=== PATIENT | female | born 1950 ===

== ENCOUNTER 2023-11-14 17:05 | Emergency (ER) | payer MEDICARE, OTHER ==
[2023-11-14] MEDS ORDERED: Sodium Chloride 0.9% 10 ML Syringe FLUSH PRN (17:23)
[2023-11-14 17:38] LABS: BASOPHILS ABSOLUTE AUTO 0.03 K/uL (0.00-0.20); BASOPHILS PERCENT AUTO 0.4 % (0.0-2.0); EOSINOPHILS ABSOLUTE AUTO 0.12 K/uL (0.00-0.50); EOSINOPHILS PERCENT AUTO 1.6 % (0.0-5.0); HEMATOCRIT 33.3 % (34.0-46.0); HEMOGLOBIN 10.8 g/dL (11.7-15.5); LYMPHOCYTES ABSOLUTE AUTO 1.82 K/uL (0.50-3.50); LYMPHOCYTES PERCENT AUTO 23.7 % (10.0-50.0); MEAN CORPUSCULAR HEMOGLOBIN 31.1 pg (28.2-33.3); MEAN CORPUSCULAR HGB CONC 32.4 g/dL (31.7-36.0); MONOCYTES ABSOLUTE AUTO 0.77 K/uL (0.00-1.00); NEUTROPHILS ABSOLUTE AUTO 4.94 K/uL (1.40-7.00); NEUTROPHILS PERCENT AUTO 64.3 % (45.0-80.0); PLATELET COUNT,PLT 300 K/uL (150-350); RED BLOOD CELL COUNT 3.47 M/uL (3.77-5.09); RED CELL DISTRIBUTION WIDTH 13.2 % (11.2-14.1); WHITE BLOOD CELL COUNT,WBC 7.7 K/uL (4.0-10.2)
[2023-11-14] MEDS ORDERED: Prochlorperazine 5 MG in Sodium Chloride 0.9% 100 ML IV ONE (17:39)
[2023-11-14] MEDS: Sodium Chloride 0.9% 500 ML IV SCH (17:40)
[2023-11-14 17:50] VITALS: BP 136/62; PULSE 73
[2023-11-14 18:03] LABS: ALBUMIN 3.5 g/dL (3.4-5.0); ANION GAP 9.8 meq/L (7-15); BILIRUBIN TOTAL 0.4 mg/dL (0.2-1.0); CALCIUM 8.8 mg/dL (8.5-10.1); CARBON DIOXIDE,CO2 25.2 mmol/L (21.0-32.0); CREATININE 0.84 mg/dL (0.51-1.17); EST CRCL DRUG DOSING (CG) 43.48 mL/min; MAGNESIUM 2.1 mg/dL (1.8-2.4); POTASSIUM,K 3.6 mmol/L (3.5-5.1); PROTEIN TOTAL,TP 6.5 g/dL (6.4-8.2)
[2023-11-14 18:13] LABS: APPEARANCE,URINE SLIGHTLY CLOUDY; BILIRUBIN,URINE NEGATIVE (NEGATIVE); COLOR,URINE YELLOW; GLUCOSE,URINE NEGATIVE (NEGATIVE); KETONES,URINE NEGATIVE (NEGATIVE); LEUKOCYTE ESTERASE,URINE NEGATIVE (NEGATIVE); NITRITE,URINE NEGATIVE (NEGATIVE); OCCULT BLOOD,URINE NEGATIVE (NEGATIVE); PROTEIN,URINE NEGATIVE (NEGATIVE); UROBILINOGEN,URINE 0.2 E.U./dL (0.2-1.0)
[2023-11-14] MEDS: Prochlorperazine 10 MG/2 ML SDV ONE (19:17)
== END 2023-11-14 18:40 | disposition home or self-care (01) ==
LOC: LL.ED 17:05
DX: R11.0 Nausea (principal); I10 Essential (primary) hypertension; E78.00 Pure hypercholesterolemia, unspecified; K21.9 Gastro-esophageal reflux disease without esophagitis; E03.9 Hypothyroidism, unspecified; Z88.1 Allergy status to other antibiotic agents; Z88.5 Allergy status to narcotic agent; Z88.0 Allergy status to penicillin; Z91.018 Allergy to other foods; Z91.09 Other allergy status, other than to drugs and biological substances; Z88.7 Allergy status to serum and vaccine; Z79.82 Long term (current) use of aspirin; Z79.899 Other long term (current) drug therapy; Z79.51 Long term (current) use of inhaled steroids; Z86.16 Personal history of COVID-19; Z90.49 Acquired absence of other specified parts of digestive tract; Z90.710 Acquired absence of both cervix and uterus
CPT/HCPCS: 36415; 80053; 81003; 82150; 83690; 83735; 85025; 96361; 96374; 99283-25; 99284; J7040

== ENCOUNTER 2024-04-11 14:11 | Observation (INO) | payer MEDICARE, OTHER ==
[2024-04-11] MEDS ORDERED: Sodium Chloride 0.9% 10 ML Syringe FLUSH PRN (14:34)
[2024-04-11 14:43] LABS: BASOPHILS ABSOLUTE AUTO 0.05 K/uL (0.00-0.20); BASOPHILS PERCENT AUTO 0.7 % (0.0-2.0); EOSINOPHILS ABSOLUTE AUTO 0.31 K/uL (0.00-0.50); EOSINOPHILS PERCENT AUTO 4.5 % (0.0-5.0); HEMATOCRIT 39.6 % (34.0-46.0); HEMOGLOBIN 12.9 g/dL (11.7-15.5); LYMPHOCYTES ABSOLUTE AUTO 1.97 K/uL (0.50-3.50); LYMPHOCYTES PERCENT AUTO 28.9 % (10.0-50.0); MEAN CORPUSCULAR HEMOGLOBIN 30.6 pg (28.2-33.3); MEAN CORPUSCULAR HGB CONC 32.6 g/dL (31.7-36.0); MEAN CORPUSCULAR VOLUME 93.8 fL (84.0-98.0); MONOCYTES ABSOLUTE AUTO 0.59 K/uL (0.00-1.00); MONOCYTES PERCENT AUTO 8.7 % (2.0-14.0); NEUTROPHILS PERCENT AUTO 57.2 % (45.0-80.0); PLATELET COUNT,PLT 275 K/uL (150-350); RED BLOOD CELL COUNT 4.22 M/uL (3.77-5.09); RED CELL DISTRIBUTION WIDTH 14.2 % (11.2-14.1); WHITE BLOOD CELL COUNT,WBC 6.8 K/uL (4.0-10.2)
[2024-04-11] MEDS: Aspirin 81 MG Tab.Chew PO ONE ×2 (14:43→14:44)
[2024-04-11 14:57] LABS: LACTIC ACID 1.3 mmol/L (0.4-2.0)
[2024-04-11 15:02] LABS: ALBUMIN 4.1 g/dL (3.4-5.0); BILIRUBIN TOTAL 0.2 mg/dL (0.2-1.0); CARBON DIOXIDE,CO2 29.4 mmol/L (21.0-32.0); CREATININE 1.03 mg/dL (0.51-1.17); EST CRCL DRUG DOSING (CG) 34.94 mL/min; MAGNESIUM 2.1 mg/dL (1.8-2.4); POTASSIUM,K 3.4 mmol/L (3.5-5.1); PROTEIN TOTAL,TP 7.2 g/dL (6.4-8.2)
[2024-04-11] MEDS: Aluminum Hydroxide/Magnesium Hydroxide/Simethicone Susp 30 ML Cup PO ONE ×2 (15:05→16:30)
[2024-04-11] MEDS: Lidocaine 2% Viscous Solution 15 ML UD PO ONE ×2 (15:05→16:29)
[2024-04-11 15:18] LABS: PROTHROMBIN TIME 10.1 SEC (9.0-11.1)
[2024-04-11] MEDS: Pantoprazole 40 MG Vial IVPUSH ONE (15:35)
[2024-04-11] MEDS: Famotidine 20 MG/2 ML SDV IVPUSH ONE (16:31)
[2024-04-11] MEDS ORDERED: Ondansetron 4 MG/2 ML SDV IVPUSH PRN (17:22)
[2024-04-11] MEDS ORDERED: Acetaminophen 500 MG Tab PO PRN (17:23)
[2024-04-11] MEDS ORDERED: Cyclobenzaprine 10 MG Tab PO PRN (17:23)
[2024-04-11] MEDS ORDERED: Diclofenac Sodium 1% Gel 100 GM Tube TOP PRN (17:23)
[2024-04-11] MEDS: Ketorolac 15 MG/ML SDV IVPUSH ONE (18:14)
[2024-04-11] MEDS: Verapamil 120 MG Tab.ER PO SCH (19:19)
[2024-04-11] MEDS: Topiramate 100 MG Tab PO SCH (19:20)
[2024-04-11] MEDS: Verapamil 180 MG Tab.ER PO SCH (19:20)
[2024-04-11] MEDS: Cetirizine 10 MG Tab PO SCH (20:33)
[2024-04-12] MEDS: Pantoprazole 40 MG Vial IVPUSH ONE (05:38)
[2024-04-12] MEDS: Levothyroxine 88 MCG Tab ONE (05:38)
[2024-04-12] MEDS: Levothyroxine 88 MCG Tab PO SCH (05:38)
[2024-04-12] MEDS: Escitalopram 20 MG Tab PO SCH (07:17)
[2024-04-12] MEDS: Rosuvastatin 10 MG Tab PO SCH (07:17)
[2024-04-12] MEDS: amLODIPine 5 MG Tab PO SCH (07:17)
[2024-04-12] MEDS: Losartan 50 MG Tab PO SCH (07:18)
[2024-04-12 07:40] LABS: BASOPHILS ABSOLUTE AUTO 0.02 K/uL (0.00-0.20); BASOPHILS PERCENT AUTO 0.4 % (0.0-2.0); EOSINOPHILS ABSOLUTE AUTO 0.31 K/uL (0.00-0.50); EOSINOPHILS PERCENT AUTO 5.7 % (0.0-5.0); HEMATOCRIT 38.9 % (34.0-46.0); HEMOGLOBIN 12.5 g/dL (11.7-15.5); LYMPHOCYTES ABSOLUTE AUTO 1.33 K/uL (0.50-3.50); LYMPHOCYTES PERCENT AUTO 24.5 % (10.0-50.0); MEAN CORPUSCULAR HEMOGLOBIN 30.4 pg (28.2-33.3); MEAN CORPUSCULAR HGB CONC 32.1 g/dL (31.7-36.0); MEAN CORPUSCULAR VOLUME 94.6 fL (84.0-98.0); MONOCYTES ABSOLUTE AUTO 0.49 K/uL (0.00-1.00); NEUTROPHILS ABSOLUTE AUTO 3.27 K/uL (1.40-7.00); NEUTROPHILS PERCENT AUTO 60.4 % (45.0-80.0); PLATELET COUNT,PLT 243 K/uL (150-350); RED BLOOD CELL COUNT 4.11 M/uL (3.77-5.09); RED CELL DISTRIBUTION WIDTH 14.2 % (11.2-14.1); WHITE BLOOD CELL COUNT,WBC 5.4 K/uL (4.0-10.2)
[2024-04-12 08:04] LABS: ANION GAP 7.6 meq/L (7-15); CALCIUM 9.2 mg/dL (8.5-10.1); CARBON DIOXIDE,CO2 29.4 mmol/L (21.0-32.0); CREATININE 0.91 mg/dL (0.51-1.17); EST CRCL DRUG DOSING (CG) 39.55 mL/min; POTASSIUM,K 4.1 mmol/L (3.5-5.1)
[2024-04-12] MEDS: Loperamide 2 MG Tab PO ONE (10:17)
[2024-04-12 10:23] VITALS: BP 150/84; PULSE 78
[2024-04-12] MEDS ORDERED: Cetirizine 10 MG Tab PO SCH (20:00)
[2024-04-14] MEDS ORDERED: Levothyroxine 88 MCG Tab PO SCH (07:30)
== END 2024-04-12 10:35 | disposition home or self-care (01) ==
LOC: SUPCPDRO 14:11 → LL.ED 14:11 → LL.MS 16:51
PROVIDERS: ADMIT Emergency Medicine; ATTEND Emergency Medicine
DX: R07.89 Other chest pain (principal); K52.9 Noninfective gastroenteritis and colitis, unspecified; I10 Essential (primary) hypertension; E78.00 Pure hypercholesterolemia, unspecified; E03.9 Hypothyroidism, unspecified; K21.9 Gastro-esophageal reflux disease without esophagitis; F32.A Depression, unspecified; Z79.82 Long term (current) use of aspirin; Z79.899 Other long term (current) drug therapy; Z88.0 Allergy status to penicillin; Z88.6 Allergy status to analgesic agent; Z88.8 Allergy status to other drugs, medicaments and biological substances
CPT/HCPCS: 36415; 71045; 80048; 80053; 83605; 83735; 83880; 84484; 85025; 85379; 85610; 93005; 96374; 96375; 96376; 99285-25; A9270-GY; G0378; J1885; J2470; J3490